=== PATIENT | female | born 1990 | race Two or more races ===

== ENCOUNTER 2025-01-11 08:03 | Inpatient (IN) | payer BC, SELFPAY ==
--- NOTE | 2025-01-11 | XR_ITS ---
MRI abdomen, without contrast. MRCP Date and time of exam: January 11, 2025, 1503 hrs. Indications: Abdominal pain radiating to back this morning, enlarged common bile duct and possible edema around the pancreas on abdomen sonogram today at 0905 hrs. Technique: Multiple axial and coronal images of the abdomen have been obtained with the Siemens 1.5T MRI scanner. Images obtained included T1 weighted transverse images, T2-weighted transverse images, T2-weighted transverse images fat-suppressed, T2 weighted haste fat suppressed transverse images, T1 weighted images, in and out of phase images, T2-weighted coronal images, breath hold, T2 weighted haze coronal images as well as T2 weighted coronal thick slab images, MRCP. Findings: No focal liver lesions or intrahepatic biliary tract dilatation Multiple gallstones, gallbladder wall is not thickened. Common hepatic duct common bile duct 4 to 5 mm no common bile duct or common hepatic duct stones. Pancreatic duct is not dilated. Prominent edema surrounding the pancreas. Spleen is not enlarged No hydronephrosis Impression: Cholelithiasis, negative for cholecystitis Negative for common hepatic or common bile duct stones Prominent pancreatitis, no pseudocyst
[2025-01-11 08:04] VITALS: BMI 36.6
[2025-01-11 08:09] VITALS: BP 130/85; PULSE 100; RESP 19; TEMP 36.7; O2SAT 100; BMI 32.7
--- NOTE | 2025-01-11 08:26 | PD.EDRME ---
Rapid Medical Screening Exam E Arrival date/time: 01/11/25 08:03 This is a 34-year-old female that comes into the emergency room with complaints of nausea urinary frequency urgency oliguria but denies dysuria. Patient states that she was seen at [facility] and was diagnosed with a UTI and a ruptured ovarian cyst. Patient was placed on Keflex and 2 days her last day of antibiotic. Patient states she has not been able to keep anything down she has a poor appetite. Patient denies vomiting but complains about nausea. Patient has a history of gastric sleeve surgery approximately 4 years ago. Patient patient reports she recently just had a menstrual cycle and does not think she is . Patient complains of generalized abdominal pain. I have greeted and performed a focused initial assessment of this patient. Initial appropriate labs ordered at this time. A comprehensive ED assessment and evaluation of the patient and analysis of all test and completion of medical decision making process will be conducted by additional ED provider. Chief Complaint: Urogenital-Female Time Seen by Provider: 01/11/25 08:09 Vital signs: Vital Signs Temperature 98.0 F 01/11/25 08:09 Pulse Rate 100 01/11/25 08:09 Respiratory Rate 19 01/11/25 08:09 Blood Pressure 130/85 H 01/11/25 08:09 Pulse Oximetry (%) 100 01/11/25 08:09 Oxygen Delivery Method Room Air 01/11/25 08:09
[2025-01-11] MEDS: ONDANSETRON ODT 4 MG TABRAP PO (08:33)
--- NOTE | 2025-01-11 09:08 | XR_ITS ---
Examination: Abdomen sonogram, Limited Date and time of exam: January 11, 2025, 0905 hrs. Indications: Upper back pain epigastric pain today Technique: Real-time metzger scale transabdominal sonographic images of the upper abdomen obtained. Findings: Gallstones, gallbladder sludge, normal gallbladder wall 0.2 cm Common bile duct 0.8 cm no definite stones Pancreatic head 3.7 cm possible edema Liver 15 cm Normal hepatopedal portal venous flow Patent IVC Impression: Cholelithiasis, negative for cholecystitis Consider MRCP follow-up to exclude stones in the dilated common bile duct and also to confirm pancreatitis
[2025-01-11 09:11] LABS: Collection Type, Urine Voided
[2025-01-11 09:16] LABS: Basophils # (Auto) 0.0 Thou/mm3 (0.0-0.2); Basophils % (Auto) 0 % (0-2.5); Eosinophils # (Auto) 0.0 Thou/mm3 (0.0-0.5); Eosinophils % (Auto) 0 % (0-10); Hematocrit 40.6 % (36.0-46.0); Hemoglobin 13.6 g/dL (12.0-16.0); Immature Granulocytes Auto 0.08 Thou/mm3 (0.00-0.00); Lymphocytes # (Auto) 0.8 Thou/mm3 (1.0-4.8); Lymphocytes % (Auto) 5 % (10-50); Mean Corpuscular HGB Conc 33.5 g/dl (31.0-37.0); Mean Corpuscular Hemoglobin 29.8 pg (25.0-35.0); Mean Corpuscular Volume 89 fL (80-100); Monocytes # (Auto) 0.3 Thou/mm3 (0.0-0.8); Monocytes % (Auto) 2 % (0-12); Neutrophils # (Auto) 14.0 Thou/mm3 (1.8-7.7); Neutrophils % (Auto) 92 % (37-80); Nucleated Red Blood Cell # 0.00 Thou/mm3 (0.00-0.00); Nucleated Red Blood Cell % 0 /100 WBC (0); Platelet Count 416 Thou/mm3 (140-440); RDW Standard Deviation 41.1 fL (36.4-46.3); Red Blood Count 4.57 Miln/mm3 (4.00-5.20); White Blood Count 15.2 Thou/mm3 (3.6-11.0)
--- NOTE | 2025-01-11 09:16 | XR_ITS ---
Examination: Transvaginal ultrasound of the pelvis, complete Technique: Transvaginal sonographic images pelvis performed using metzger scale imaging Exam date and time: January 11, 2025, 0919 hrs. Indications: Upper abdominal pain pelvic pain with nausea today, history ovarian cyst rupture one week ago Findings: Uterus 7.0 cm endometrial stripe 0.5 cm No mass or intrauterine gestation Right ovary 3.1 cm arterial flow small follicles, the largest 9 mm Left ovary 3.5 cm arterial flow, small follicles, the largest 7 mm Minimal fluid adjacent to the left ovary Mild fluid in the cul-de-sac Impression: No uterine mass or intrauterine gestation Small bilateral ovarian follicular cysts Mild free fluid in the left adnexal region, differential would include recent rupture of a left ovarian follicular cyst.
[2025-01-11 09:21] LABS: Bilirubin,Urine Negative (Negative); Blood,Urine Trace (Negative); Clarity,Urine Clear (Clear/Hazy); Color,Urine Yellow (Lt Yel-Yel); Culture Indicated,Urine Not Indicated; Glucose, Urine Negative (Negative); Ketones,Urine 4+ (Negative); Leukocyte Esterase,Urine Positive (Negative); Nitrite,Urine Negative (Negative); PH,Urine 6.0 (5.0-7.0); Protein,Urine 1+ (Neg - Trace); RBC,Urine 4 /hpf (0-3); Specific Gravity,Urine 1.030 (1.001-1.035); Squamous Epithelial Cell,Urine 3 /hpf (0-5); Urobilinogen,Urine 3.0 mg/dL (0.0-1.0); WBC,Urine 5 /hpf (0-5)
[2025-01-11 09:47] LABS: INR 1.1 (0.9-1.3); Prothrombin Time 11.3 Seconds (9.0-12.2)
[2025-01-11 09:48] LABS: HCG Qualitative,Urine Negative
[2025-01-11 10:16] LABS: Alanine Aminotransferase 184 U/L (10-49); Albumin, Serum 4.6 gm/dL (3.5-5.0); Albumin/Globulin Ratio 1.4 (1.2-2.2); Alkaline Phosphatase 180 U/L (46-116); Anion Gap 11 (7-16); Aspartate Amino Transferase 97 U/L (0-34); BUN/Creatinine Ratio 14 Ratio (12-20); Bilirubin,Total 1.3 mg/dL (0.3-1.2); Blood Urea Nitrogen 10 mg/dL (9-23); Calcium 9.8 mg/dL (8.3-10.6); Calcium (Corrected) 9.8 mg/dL (8.5-10.1); Carbon Dioxide 25.0 mMol/L (20.0-31.0); Chloride 106 mMol/L (98-107); Creatinine (Component) 0.7 mg/dL (0.6-1.3); Estimated Creatinine Clearance 140.9 mL/min (>60); Globulin 3.2 gm/dL (2.3-3.5); Glucose 124 mg/dL (74-106); Lipase 2451 U/L (12-53); Osmolality,Calculated 283 (275-295); Potassium 4.6 mMol/L (3.4-5.1); Sodium 142 mMol/L (136-145); Total Protein 7.8 gm/dL (5.7-8.2); eGFR > 60 See Note
--- NOTE | 2025-01-11 11:30 | PD.EDFMALE ---
ED Female Urogenital RME/HPI General Chief complaint: Urogenital-Female Stated complaint: GEN. ABD PAIN RADIATING TO BACK X0200 THIS AM Time Seen by Provider: 01/11/25 08:09 Arrival date/time: 01/11/25 08:03 Limitations: no limitations RME / HPI RME / HPI Narrative: DR. MATTIE QUILES ED EVALUATION: 34-year-old female with history of gastric sleeve surgery (4 years ago) presents to the Emergency Department with complaints of nausea, urinary frequency, urgency, and oliguria, but denies dysuria. She was evaluated at [facility] recently and diagnosed with an UTI and a ruptured ovarian cyst, for which she was started on Keflex. Today is day 2 of her antibiotic course. She reports poor appetite and inability to keep much down, though she denies vomiting. She also reports generalized abdominal pain. She recently completed a menstrual cycle and does not believe she is . Related Data Home Medications ?Medication ?Instructions ?Recorded ?Confirmed levothyroxine 75 mcg tablet 75 mcg PO DAILY 01/11/25 01/11/25 liothyronine 25 mcg tablet 25 mcg PO DAILY 01/11/25 01/11/25 Previous Rx's ?Medication ?Instructions ?Recorded naloxone 4 mg/actuation nasal 4 mg intranasal Q2M PRN opioid 01/13/25 spray (Narcan) overdose #2 ea Allergies Allergy/AdvReac Type Severity Reaction Status Date / Time No Known Allergies Allergy Unverified 01/11/25 08:27 Review of Systems Review of Systems Systems Reviewed: All systems reviewed, normal except as documented Past Medical History Past Medical History GASTROINTESTINAL: Positive Obesity ENDOCRINE: Positive Hyperthyroidism and Hypothyroidism Surgical History SURGICAL: Positive Abdominal Surgery (gastric sleeve) Social History SMOKING STATUS: Never smoker SUBSTANCE USE: does not use ALCOHOL: Never ED Exam General Limitations: Present no limitations General appearance: Present alert and in no apparent distress Head Head exam: Present atraumatic, normocephalic and normal inspection Eye Eye exam: Present normal appearance, PERRL and EOMI ENT ENT exam: Present normal exam, normal oropharynx and mucous membranes moist Neck Neck exam: Present normal inspection, full ROM and trachea midline Chest Chest inspection: Present normal inspection and symmetric chest wall rise Respiratory Respiratory exam: Present normal lung sounds bilaterally Cardiovascular Cardiovascular exam: Present regular rate, normal rhythm and normal heart sounds Abdominal Exam Abdominal exam: Present soft and normal bowel sounds Extremities Exam Extremities exam: Present normal inspection and full ROM Back Exam Back exam: Present normal inspection and full ROM Neurological Exam Neurological exam: Present alert, oriented X3 and CN II-XII intact Psychiatric Psychiatric exam: Present normal affect and normal mood Skin Skin exam: Present warm, dry, intact and normal color Course Quality Measures none Orders Category Date Time Status MRI Screening NOW Care 01/11/25 11:40 Completed MR MRCP Stat Exams 01/11/25 Completed US abdomen limited Stat Exams 01/11/25 09:08 Completed US transvaginal Stat Exams 01/11/25 09:16 Completed CBC Stat Lab 01/11/25 08:48 Completed Comprehensive Metabolic Panel Stat Lab 01/11/25 08:48 Completed HCG Qualitative,Urine Stat Lab 01/11/25 08:57 Completed Lipase Stat Lab 01/11/25 08:48 Completed PT [Prothrombin Time with INR] Stat Lab 01/11/25 08:48 Completed Type and Screen Stat Lab 01/11/25 09:28 Completed Urinalysis, C/S if Indicated Stat Lab 01/11/25 08:57 Completed Morphine* Inj Med 01/11/25 14:54 Discontinued 2 mg IVP STAT STA Morphine* Inj Med 01/11/25 20:33 Discontinued 2 mg IVP X1 ONE Ondansetron Odt [Zofran Odt] Med 01/11/25 08:25 Discontinued 4 mg PO X1 ONE Ringers Lactated 1000 ml [Lactated Ringers] 1,000 ml Med 01/11/25 11:40 Discontinued IV 999 mls/hr Vital Signs Vital signs: Vital Signs Temperature 98.0 F 01/11/25 08:09 Pulse Rate 100 01/11/25 08:09 Respiratory Rate 19 01/11/25 08:09 Blood Pressure 130/85 H 01/11/25 08:09 Pulse Oximetry (%) 100 01/11/25 08:09 Oxygen Delivery Method Room Air 01/11/25 08:09 Urogenital - Female MDM Narrative MDM Narrative:: Labs with evidence of leukocytosis 15.2, left shift of 92%. No acute electrolyte abnormality. Patient does have a transaminitis, do not have a recent prior for comparison. T. bili 1.3, AST 97, ALT 184 alk phos 180. Patient has a lipase of 2451. Urinalysis with 3 squames 5 WBCs 4 RBCs positive leuk esterase no bacteria nitrite negative. Will send the urine for culture we will treat given patient is symptomatic. Right upper quadrant ultrasound with evidence of cholelithiasis no evidence of cholecystitis. CBD is not dilated. Pelvic ultrasound with bilateral ovarian follicular cysts, mild free fluid in the left adnexal region. MRCP without evidence of choledocholithiasis, does have cholelithiasis and npancreatitis. No abnormalities appreciated. Discussed case with team C. Dr. Mi. Agrees patient needs to be admitted. I, Luly Davis, am scribing for and in the presence of Dr. Pittman. Patient data External records reviewed:: [facility] previous records Clinical information provided by:: patient Social determinants that could affect healthcare access:: none Patient has the following chronic illnesses:: History of gastric sleeve surgery (4 years ago). She was evaluated at [facility] recently and diagnosed with an UTI and a ruptured ovarian cyst, for which she was started on Keflex. How is presenting disease/condition affected by chronic disease/condition?: exacerbated by Evaluation data The following diagnostics were reviewed and interpreted by me:: lab results and radiology exam(s) Lab and/or radiology exams considered but not ordered:: none Interpretation Summary: See MDM narrative above. RADIOLOGY Procedure(s): US abdomen limited Accession Number(s): [id number] cc: Frankie Jurado MD; NO PRIMARY/FAMILY,PHYSICIAN; Karol Moser NP~ Examination: Abdomen sonogram, Limited Date and time of exam: January 11, 2025, 0905 hrs. Indications: Upper back pain epigastric pain today Technique: Real-time metzger scale transabdominal sonographic images of the upper abdomen obtained. Findings: Gallstones, gallbladder sludge, normal gallbladder wall 0.2 cm Common bile duct 0.8 cm no definite stones Pancreatic head 3.7 cm possible edema Liver 15 cm Normal hepatopedal portal venous flow Patent IVC Impression: Cholelithiasis, negative for cholecystitis Consider MRCP follow-up to exclude stones in the dilated common bile duct and also to confirm pancreatitis Dictated By: Frankie Jurado MD Procedure(s): US transvaginal Accession Number(s): [id number] cc: Frankie Jurado MD; NO PRIMARY/FAMILY,PHYSICIAN; Loulou Pittman MD~ Examination: Transvaginal ultrasound of the pelvis, complete Technique: Transvaginal sonographic images pelvis performed using metgzer scale imaging Exam date and time: January 11, 2025, 0919 hrs. Indications: Upper abdominal pain pelvic pain with nausea today, history ovarian cyst rupture one week ago Findings: Uterus 7.0 cm endometrial stripe 0.5 cm No mass or intrauterine gestation Right ovary 3.1 cm arterial flow small follicles, the largest 9 mm Left ovary 3.5 cm arterial flow, small follicles, the largest 7 mm Minimal fluid adjacent to the left ovary Mild fluid in the cul-de-sac Impression: No uterine mass or intrauterine gestation Small bilateral ovarian follicular cysts Mild free fluid in the left adnexal region, differential would include recent rupture of a left ovarian follicular cyst. Dictated By: Frankie Jurado MD Procedure(s): MR MRCP Accession Number(s): [id number] cc: Frankie Jurado MD; NO PRIMARY/FAMILY,PHYSICIAN; Loulou Pittman MD~ MRI abdomen, without contrast. MRCP Date and time of exam: January 11, 2025, 1503 hrs. Indications: Abdominal pain radiating to back this morning, enlarged common bile duct and possible edema around the pancreas on abdomen sonogram today at 0905 hrs. Technique: Multiple axial and coronal images of the abdomen have been obtained with the Siemens 1.5T MRI scanner. Images obtained included T1 weighted transverse images, T2-weighted transverse images, T2-weighted transverse images fat-suppressed, T2 weighted haste fat suppressed transverse images, T1 weighted images, in and out of phase images, T2-weighted coronal images, breath hold, T2 weighted haze coronal images as well as T2 weighted coronal thick slab images, MRCP. Findings: No focal liver lesions or intrahepatic biliary tract dilatation Multiple gallstones, gallbladder wall is not thickened. Common hepatic duct common bile duct 4 to 5 mm no common bile duct or common hepatic duct stones. Pancreatic duct is not dilated. Prominent edema surrounding the pancreas. Spleen is not enlarged No hydronephrosis Impression: Cholelithiasis, negative for cholecystitis Negative for common hepatic or common bile duct stones Prominent pancreatitis, no pseudocyst Dictated By: Frankie Jurado MD Medications / Prescriptions Medications or Prescriptions considered but not ordered:: none Medication administrations:: Medication Administration History Discontinued Medications Acetaminophen (Acetaminophen 325 Mg Tablet) 650 mg PO Q6H PRN PRN Reason: Fever >100.4 Stop: 02/10/25 21:08 Acetaminophen (Acetaminophen 325 Mg Tablet) 650 mg PO Q6H PRN PRN Reason: PAIN SCALE 1-3 (mild Stop: 02/10/25 21:08 Heparin Sodium (Porcine) (Heparin Sod Inj 5000 Unit/Ml Vial) 5,000 unit SC Q8HR MAIRA Stop: 01/25/25 21:59 Last Admin: 01/13/25 05:33 Dose: 5,000 unit Documented By: ARACELI Co-signed By: LETITIA Admin: 01/12/25 21:03 Dose: 5,000 unit Documented By: ARACELI Co-signed By: YESSI Admin: 01/12/25 14:19 Dose: 5,000 unit Documented By: BRYAN Co-signed By: RY Admin: 01/12/25 05:38 Dose: 5,000 unit Documented By: ALLEY Co-signed By: ARACELI Admin: 01/11/25 22:07 Dose: 5,000 unit Documented By: LAVON Co-signed By: ANNA Hydromorphone HCl (Hydromorphone Inj 2 Mg/Ml Vial) 1 mg IVP Q4HR PRN PRN Reason: Pain 4-10 Stop: 01/17/25 08:08 Last Admin: 01/12/25 19:21 Dose: 1 mg Documented By: Admin: 01/12/25 11:23 Dose: 1 mg Documented By: BRYAN Lactated Ringer's (Lactated Ringers) 1,000 mls @ 999 mls/hr IV .Q1H1M ONE Stop: 01/11/25 12:40 Last Infusion: 01/11/25 13:08 Dose: Infused Documented By: Admin: 01/11/25 12:07 Dose: 999 mls/hr Documented By: KAITLYNN Lactated Ringer's (Lactated Ringers) 1,000 mls @ 200 mls/hr IV .Q5H MAIRA Stop: 02/10/25 21:14 Last Admin: 01/13/25 06:01 Dose: 200 mls/hr Documented By: Infusion: 01/13/25 06:01 Dose: Infused Documented By: Admin: 01/13/25 01:26 Dose: 200 mls/hr Documented By: Infusion: 01/13/25 01:26 Dose: Infused Documented By: Admin: 01/12/25 20:52 Dose: 200 mls/hr Documented By: Infusion: 01/12/25 20:32 Dose: Infused Documented By: Admin: 01/12/25 15:32 Dose: 200 mls/hr Documented By: Infusion: 01/12/25 15:32 Dose: Infused Documented By: Admin: 01/12/25 10:41 Dose: 200 mls/hr Documented By: Infusion: 01/12/25 10:37 Dose: Infused Documented By: Admin: 01/12/25 05:37 Dose: 200 mls/hr Documented By: Infusion: 01/12/25 05:37 Dose: Infused Documented By: Admin: 01/12/25 02:46 Dose: 200 mls/hr Documented By: Infusion: 01/12/25 02:28 Dose: Infused Documented By: Admin: 01/11/25 21:28 Dose: 200 mls/hr Documented By: LAVON Potassium Chloride (Kcl Ivpb) 10 meq in 100 mls @ 100 mls/hr IV Q1H MAIRA Stop: 01/13/25 12:32 Last Admin: 01/13/25 09:51 Dose: Not Given Documented By: JAY Non-Admin Reason: Discontinued Admin: 01/13/25 09:49 Dose: Not Given Documented By: JAY Non-Admin Reason: Discontinued Morphine Sulfate (Morphine Sulf Inj 4 Mg/Ml Vial) 2 mg IVP STAT STA Stop: 01/11/25 14:55 Last Admin: 01/11/25 15:02 Dose: 2 mg Documented By: INES Morphine Sulfate (Morphine Sulf Inj 4 Mg/Ml Vial) 2 mg IVP X1 ONE Stop: 01/11/25 20:34 Last Admin: 01/11/25 20:38 Dose: 2 mg Documented By: LAVON Morphine Sulfate (Morphine Sulf Inj 4 Mg/Ml Vial) 2 mg IVP Q4HR PRN PRN Reason: PAIN SCALE 4-10(Mod-Sev Last Admin: 01/12/25 07:05 Dose: 2 mg Documented By: Admin: 01/12/25 02:45 Dose: 2 mg Documented By: YESSI Ondansetron HCl (Ondansetron Odt 4 Mg Tabrap) 4 mg PO X1 ONE; Protocol Stop: 01/11/25 08:26 Last Admin: 01/11/25 08:33 Dose: 4 mg Documented By: GRACIE Ondansetron HCl (Ondansetron Inj 2 Mg/Ml Inj 2 Ml) 4 mg IVP Q6H PRN; Protocol PRN Reason: NAUSEA OR VOMITING Stop: 02/10/25 21:08 Pantoprazole Sodium (Pantoprazole 40 Mg Tablet) 40 mg PO QDAY MAIRA Stop: 02/11/25 08:59 Last Admin: 01/13/25 08:05 Dose: 40 mg Documented By: Admin: 01/12/25 08:11 Dose: 40 mg Documented By: BRYAN Potassium Chloride (Potassium Chloride 20 Meq Tabcr) 40 meq PO X1 ONE Stop: 01/13/25 09:47 Last Admin: 01/13/25 09:54 Dose: 40 meq Documented By: JAY Sennosides (Senna Tablet) 1 tab PO QDAY PRN; Protocol PRN Reason: constipation Stop: 02/10/25 21:08 see above Consultations Consultation(s) initiated? (list below): Yes Consultation #1 (Physician, Specialty, Details): See MDM narrative above. Diagnosis Urogenital Female Differential Diagnosis: other (Complicated UTI/pyelonephritis, ruptured ovarian cyst with persistent pain, and gastritis/peptic ulcer disease (post-gastric sleeve).) Most likely diagnosis given after review of the tests above:: See below under clinical impression Admission Indicated Admission indicated?: indicated Admission Request Was there a request for admission?: Yes Admission Attestation Admission request attestation: Discussed case with [] from Hospitalist service regarding admission. Discussed patients ED course, exam findings, labs, and radiology results. The Hospitalist [agrees,declines] to accept the patient for admission. Disposition Plan Disposition Plan: Discharge Discharge Attestation Discharge Attestation: The patient and all family members were given an opportunity to ask questions and understood the discharge instructions. Discharge instructions specifically effects, indications for sooner follow up or return to the emergency department, and the expected course of current diagnosis. Patient condition: Stable Discharge Plan Plan Patient Disposition: Admit Acute Care w/in Hospital Patient condition on transfer: Stable Problem List Clinical Impression: Pancreatitis Patient/Caregiver Discharge Instructions Discharge Activity: activity as tolerated
[2025-01-11 11:46] VITALS: BP 127/87; PULSE 94; RESP 17; TEMP 36.8; O2SAT 98
[2025-01-11] MEDS: RINGERS LACTATED 1000 ML 1,000 ML 999 ML IV (12:07)
[2025-01-11] MEDS: MORPHINE SULF INJ 4 MG/ML VIAL 2 MG IVP ×2 (15:02→20:38)
[2025-01-11 16:16] VITALS: BP 153/89; PULSE 97; RESP 18; TEMP 36.9; O2SAT 100
[2025-01-11 18:40] VITALS: BP 136/92; PULSE 98; RESP 18; TEMP 36.8; O2SAT 98
[2025-01-11 20:02] VITALS: BP 128/86; PULSE 100; RESP 18; TEMP 36.4; O2SAT 99
--- NOTE | 2025-01-11 21:14 | PD.RESHP ---
Documentation for date of: 01/11/25 HPI History of Present Illness Chief complaint: Severe upper abdominal pain. History of present illness: This is a 34 year old female with Past Medical History of Gastric Sleeve Surgery, hypothyroidism presents with severe upper abdominal pain 9/10 on a pain scale ,constant, radiating to the back Since 1 day.She has been experiencing Nausea since morning but denies any episodes of vomiting. She has a history of 40 pound weight loss in last 4 months and is currently on zepbound. Had a recent ED admission last week at [facility] for lower abdominal pain- came out to be ovarian cyst rupture and got treated for UTI with Cephalexin as well. No prior history of pancreatitis in the past. Patient denies fever, chills, shortness of breath, chest pain, changes in urinary or bowel habits. Patient will be admitted for management of pancreatitis. ED Encounter: When she presented to the ED her vitals are BP:130/85 mm Hg,[place]:100bpm , Resp:19 ,Temp:98.0 F ,Spo2:100 on RA Pertinent Labs are Hb:13.6 WBC: 15.2 ,Neutro:92 TB:1.3 , AST:97, ALT:184,ALP:180 Lipase:2451. UA: Ketones:4+,RBC:4, Protein:1+ MRCP shows Cholelithiasis and no stones in the common Bile Duct. She has been given [address] Ringer lactate. CT scan that showed Pancreatitis Past Medical History: Hypothyrodism - takes Levothyroxine and Liothyronine.Tirzpatide for weight loss. Past Surgical History: Gastric Sleeve Surgery. Social History: Denies alcohol usage and smoking. Family History: H/o Gallstones in her sister. ROS: As stated above. Review of Systems Review of Systems Systems Reviewed: All systems reviewed, normal except as documented Exam Vital Signs Temp Pulse Resp BP Pulse Ox O2 Del Method 97.6 F 100 18 128/86 H 99 Room Air 01/11/25 20:02 01/11/25 20:02 01/11/25 20:02 01/11/25 20:02 01/11/25 20:02 01/11/25 20:02 Narrative Exam Physical Exam GENERAL: NAD, AAOx3 HEENT: Moist mucosa. Eyes open, symmetrical, & clear CARDIO: Heart RRR, no obvious murmurs PULM: No noted coughing/dyspnea CTA B/L, no R/W/R GI: Abdomen soft, nondistended, pain on palpation in the epigastric and RUQ region. BSx4 SKIN/MSK/EXT: No wounds/rashes/edema/amputations, pain on palpation on lower Back. Pedal pulses present B/L NEURO: AAOx3, no focal neuro deficits, able to move all 4 extremities Results: Labs 01/11/25 08:48 01/11/25 08:48 Labs: Short CBC 01/11/25 Range/Units 08:48 WBC 15.2 H (3.6-11.0) Thou/mm3 Hgb 13.6 (12.0-16.0) g/dL Hct 40.6 (36.0-46.0) % Plt Count 416 (140-440) Thou/mm3 BMP 01/11/25 08:48 Sodium 142 Potassium 4.6 Chloride 106 Carbon Dioxide 25.0 BUN 10 Creatinine 0.7 Glucose 124 H Calcium 9.8 Liver Function 01/11/25 Range/Units 08:48 Total Bilirubin 1.3 H (0.3-1.2) mg/dL AST 97 H (0-34) U/L ALT 184 H (10-49) U/L Alkaline Phosphatase 180 H (46-116) U/L Albumin 4.6 (3.5-5.0) gm/dL Urine 01/11/25 Range/Units 08:57 Urine Color Yellow (Lt Yel-Yel) Urine Clarity Clear (Clear/Hazy) Urine pH 6.0 (5.0-7.0) Ur Specific [place] 1.030 (1.001-1.035) Urine Protein 1+ A (Neg - Trace) Urine Glucose (UA) Negative (Negative) Quality Measures Quality Measures none Medications Home Medications and Allergies Home Medications ?Medication ?Instructions ?Recorded ?Confirmed ?Type levothyroxine 75 mcg tablet 75 mcg PO DAILY 01/11/25 01/11/25 History liothyronine 25 mcg tablet 25 mcg PO DAILY 01/11/25 01/11/25 History tirzepatide (weight loss) 10 10 mg subcut QWEEK 01/11/25 01/11/25 History mg/0.5 mL subcutaneous pen injector (Zepbound) Allergies Allergy/AdvReac Type Severity Reaction Status Date / Time No Known Allergies Allergy Unverified 01/11/25 08:27 Visit Medications Acetaminophen (Acetaminophen 325 Mg Tablet) 650 mg PO Q6H PRN PRN Reason: Fever >100.4 Stop: 02/10/25 21:08 Acetaminophen (Acetaminophen 325 Mg Tablet) 650 mg PO Q6H PRN PRN Reason: PAIN SCALE 1-3 (mild Stop: 02/10/25 21:08 Heparin Sodium (Porcine) (Heparin Sod Inj 5000 Unit/Ml Vial) 5,000 unit SC Q8HR MAIRA Stop: 01/25/25 21:59 Lactated Ringer's (Lactated Ringers) 1,000 mls @ 200 mls/hr IV .Q5H MAIRA Stop: 02/10/25 21:14 Ondansetron HCl (Ondansetron Inj 2 Mg/Ml Inj 2 Ml) 4 mg IVP Q6H PRN; Protocol PRN Reason: NAUSEA OR VOMITING Stop: 02/10/25 21:08 Pantoprazole Sodium (Pantoprazole 40 Mg Tablet) 40 mg PO QDAY MAIRA Stop: 02/11/25 08:59 Sennosides (Senna Tablet) 1 tab PO QDAY PRN; Protocol PRN Reason: constipation Stop: 02/10/25 21:08 Discontinued Medications Lactated Ringer's (Lactated Ringers) 1,000 mls @ 999 mls/hr IV .Q1H1M ONE Stop: 01/11/25 12:40 Last Infusion: 01/11/25 13:08 Dose: Infused Morphine Sulfate (Morphine Sulf Inj 4 Mg/Ml Vial) 2 mg IVP STAT STA Stop: 01/11/25 14:55 Last Admin: 01/11/25 15:02 Dose: 2 mg Morphine Sulfate (Morphine Sulf Inj 4 Mg/Ml Vial) 2 mg IVP X1 ONE Stop: 01/11/25 20:34 Last Admin: 01/11/25 20:38 Dose: 2 mg Ondansetron HCl (Ondansetron Odt 4 Mg Tabrap) 4 mg PO X1 ONE; Protocol Stop: 01/11/25 08:26 Last Admin: 01/11/25 08:33 Dose: 4 mg Assessment & Plan Plan Patient with PMX of hypothyroidism, Gastric sleeve surgery presented with severe upper abdominal pain radiating to the back. Admitted for Pancreatitis. #Acute Pancreatitis #Cholelithiasis presents with severe upper abdominal pain 9/10 on a pain scale ,constant, radiating to the back for 1 day MRCP showed cholilithiasis without cholecystitis or CBD obstruction with prominent pancreatitis Lipase 2451 Patient has no history of alcohol abuse, however patient has had increased weight loss and is currently on zepbound which could possibly cause pancreatitis. - IV fluids Ringer lactate- 200ml/hr - CLD once tolerating and advance as tolerated - IV Morphine for pain control - follow up for Triglyceride Levels - Follow up with PCP for Elective Cholecystecomy as an outpatient #Hypothyrodism - continue levothyroxine as taken at home #Hx of ruptured ovarian cyst Previously seen at [facility] and discharged last week Case discussed with my senior Dr. Johnson PGY-[address] Marni Marin MD PGY-1 Disposition: medtele Fluids: LR Feeding: CLD Thrombo prophylaxis: Heparin Gastric Ulcer prophylaxis: Pantoprazole CODE STATUS: Full code Attending Provider Attestation/Addendum After examination of the patient and review of the clinical data I feel that this patient needs admission to the hospital for further treatment/evaluation. Plan of care discussed with patient and is in agreement. I Lisa Grider MD, attest that I was physically present for gómez portions of evaluation, and examined patient, labs and imagings and plan of care were discussed with IM residents team, and I agree with the findings and plans documented above.
[2025-01-11] MEDS: RINGERS LACTATED 1000 ML 1,000 ML 200 ML IV (21:28)
[2025-01-11] MEDS: HEPARIN SOD INJ 5000 UNIT/ML VIAL SC (22:07)
[2025-01-11 22:20] VITALS: BP 138/86; PULSE 92; RESP 18; TEMP 37.3; O2SAT 99
[2025-01-11 23:02] VITALS: BMI 35.2
[2025-01-12] VITALS (8 sets, daily range): BP systolic 102–127; BP diastolic 58–81; PULSE 92–107; RESP 16–19; TEMP 36.3–37.2; O2SAT 97–99
[2025-01-12] MEDS: MORPHINE SULF INJ 4 MG/ML VIAL 2 MG IVP ×2 (02:45→07:05)
[2025-01-12] MEDS: RINGERS LACTATED 1000 ML 1,000 ML 200 ML IV ×5 (02:46→20:52)
[2025-01-12] MEDS: HEPARIN SOD INJ 5000 UNIT/ML VIAL SC ×3 (05:38→21:03)
[2025-01-12 06:40] LABS: Alanine Aminotransferase 101 U/L (10-49); Albumin, Serum 3.7 gm/dL (3.5-5.0); Albumin/Globulin Ratio 1.6 (1.2-2.2); Alkaline Phosphatase 121 U/L (46-116); Anion Gap 11 (7-16); Aspartate Amino Transferase 32 U/L (0-34); BUN/Creatinine Ratio 10 Ratio (12-20); Bilirubin,Total 0.9 mg/dL (0.3-1.2); Blood Urea Nitrogen 6 mg/dL (9-23); Calcium 8.8 mg/dL (8.3-10.6); Calcium (Corrected) 9.0 mg/dL (8.5-10.1); Carbon Dioxide 25.0 mMol/L (20.0-31.0); Chloride 107 mMol/L (98-107); Creatinine (Component) 0.6 mg/dL (0.6-1.3); Estimated Creatinine Clearance 154.2 mL/min (>60); Globulin 2.3 gm/dL (2.3-3.5); Glucose 92 mg/dL (74-106); Magnesium 1.8 mg/dL (1.6-2.6); Osmolality,Calculated 282 (275-295); Phosphorous 3.8 mg/dL (2.4-5.1); Potassium 3.9 mMol/L (3.4-5.1); Sodium 143 mMol/L (136-145); Total Protein 6.0 gm/dL (5.7-8.2); Triglycerides 66 mg/dL (30-150); eGFR > 60 See Note
[2025-01-12 07:07] LABS: Basophils # (Auto) 0.0 Thou/mm3 (0.0-0.2); Basophils % (Auto) 0 % (0-2.5); Eosinophils # (Auto) 0.1 Thou/mm3 (0.0-0.5); Eosinophils % (Auto) 1 % (0-10); Hematocrit 35.2 % (36.0-46.0); Hemoglobin 11.7 g/dL (12.0-16.0); Immature Granulocytes Auto 0.02 Thou/mm3 (0.00-0.00); Lymphocytes # (Auto) 1.6 Thou/mm3 (1.0-4.8); Lymphocytes % (Auto) 15 % (10-50); Mean Corpuscular HGB Conc 33.2 g/dl (31.0-37.0); Mean Corpuscular Hemoglobin 29.5 pg (25.0-35.0); Mean Corpuscular Volume 89 fL (80-100); Monocytes # (Auto) 0.6 Thou/mm3 (0.0-0.8); Monocytes % (Auto) 6 % (0-12); Neutrophils # (Auto) 8.4 Thou/mm3 (1.8-7.7); Neutrophils % (Auto) 78 % (37-80); Nucleated Red Blood Cell # 0.00 Thou/mm3 (0.00-0.00); Nucleated Red Blood Cell % 0 /100 WBC (0); Platelet Count 320 Thou/mm3 (140-440); RDW Standard Deviation 42.0 fL (36.4-46.3); Red Blood Count 3.96 Miln/mm3 (4.00-5.20); White Blood Count 10.8 Thou/mm3 (3.6-11.0)
[2025-01-12] MEDS: PANTOPRAZOLE 40 MG TABLET PO (08:11)
--- NOTE | 2025-01-12 10:00 | ESPR_ITS ---
<Statement entered by Elbert Vail MD - 01/19/25 12:10> I reviewed above note and agree with findings and plans. I have also personally examined the patient with medicine team and went over assessment and plan with medical team including event marketing intern and resident physician. <Statement entered by Daniel Graham MD - 01/12/25 14:51> I saw and examined patient personally and supervised PGY 1 resident, Dr. Reynoso with formulating a management plan. I agree with the documentation with the exceptions as listed below. Patient is a 34-year-old female with past medical history significant for gastric sleeve surgery 5 years ago, hypothyroidism and obesity on tirzepatide who presented with severe abdominal pain and nausea. Patient was admitted for pancreatitis Problem list: 1. Acute pancreatitis secondary to tirzepatide with elevated lipase of 2451 2. Cholelithiasis 3. Hypothyroidism 4. Obesity class II Patient presented with severe epigastric abdominal pain and nausea but denied any episodes of vomiting. On presentation her lipase was 2451, T. bili 1.3, AST 97, ALT 181 and ALP 180. Transaminitis has now down trended and T. bili improved to 0.9 from 1.3. Patient also denies any alcohol use history. Currently pending lipid panel. Most likely etiology of her pancreatitis is from tirzepatide. It is also possible that patient may have passed a gallstone leading to gallstone pancreatitis, however MRCP was negative for any stones in CBD. Will refer patient for general surgery consultation as outpatient with regards to her cholelithiasis. This morning patient is tolerating liquid diet and her pain is adequately controlled with hydromorphone 1 mg IV every 4 hourly as needed. Once patient tolerates solids and adequate pain control, anticipate discharge within next 24 to 48 hours. Plan of care discussed with Attending Dr. Genna Graham MD PGY 2 Disclaimer: This note was dictated by speech recognition. Minor errors in plater hot dip may be present due to voice recognition software. Documentation for date of: 01/12/25 Subjective Subjective Interval history: Patient examined bedside, labs reviewed. Reports feeling much better. She has not vomited and her nausea is gone. She confirms narrative of gastric sleeve surgery 5 years ago, hypothyroid diagnosis in April, and starting tirzepatide 10 months ago with an increase in her dose to 10mg 1 month ago, which is when her symptoms began. She does not have a heavy alcohol drinking history. Exam Vital Signs Temp Pulse Resp BP Pulse Ox O2 Del Method 98.8 F 99 16 112/58 L 97 Room Air 01/12/25 07:56 01/12/25 08:00 01/12/25 07:56 01/12/25 07:56 01/12/25 07:56 01/12/25 07:56 Narrative Exam GENERAL: NAD, AAOx3 HEENT: Moist mucosa. Eyes open, symmetrical, & clear CARDIO: Heart regular rhythm rate is tachy, no obvious murmurs PULM: No noted coughing/dyspnea CTA B/L, no R/W/R GI: Abdomen soft, nondistended, pain on palpation in the epigastrium BSx4 SKIN/MSK/EXT: No wounds/rashes/edema/amputations, pain on palpation on lower Back. Pedal pulses present B/L NEURO: AAOx3, no focal neuro deficits, able to move all 4 extremities Objective Labs 01/12/25 06:50 01/12/25 05:32 Labs: Laboratory Results - last 24 hr 01/11/25 01/11/25 01/12/25 08:48 09:28 05:32 WBC RBC Hgb Hct MCV MCH MCHC RDW Std Deviation Plt Count Neut % (Auto) Lymph % (Auto) [place] % (Auto) Eos % (Auto) Baso % (Auto) Neut # (Auto) Lymph # (Auto) [place] # (Auto) Eos # (Auto) Baso # (Auto) Immature Gran # (Auto) Absolute Nucleated RBC Immature Gran % Nucleated RBC % Sodium 142 143 Potassium 4.6 3.9 D Chloride 106 107 Carbon Dioxide 25.0 25.0 Anion Gap 11 11 BUN 10 6 L Creatinine 0.7 0.6 Estim Creat Clear Calc 140.9 154.2 eGFR > 60 > 60 BUN/Creatinine Ratio 14 10 L Glucose 124 H 92 Calculated Osmolality 283 282 Calcium 9.8 8.8 Corrected Calcium 9.8 9.0 Phosphorus 3.8 Magnesium 1.8 Total Bilirubin 1.3 H 0.9 AST 97 H 32 ALT 184 H 101 H Alkaline Phosphatase 180 H 121 H D Total Protein 7.8 6.0 Albumin 4.6 3.7 D Globulin 3.2 2.3 Albumin/Globulin Ratio 1.4 1.6 Triglycerides 66 Lipase 2451 H* Blood Type O Negative Antibody Screen NEGATIVE Blood Bank Wristband ID Yes 01/12/25 06:50 WBC 10.8 RBC 3.96 L Hgb 11.7 L Hct 35.2 L MCV 89 MCH 29.5 MCHC 33.2 RDW Std Deviation 42.0 Plt Count 320 D Neut % (Auto) 78 Lymph % (Auto) 15 [place] % (Auto) 6 Eos % (Auto) 1 Baso % (Auto) 0 Neut # (Auto) 8.4 H Lymph # (Auto) 1.6 [place] # (Auto) 0.6 Eos # (Auto) 0.1 Baso # (Auto) 0.0 Immature Gran # (Auto) 0.02 H Absolute Nucleated RBC 0.00 Immature Gran % 0 Nucleated RBC % 0 Sodium Potassium Chloride Carbon Dioxide Anion Gap BUN Creatinine Estim Creat Clear Calc eGFR BUN/Creatinine Ratio Glucose Calculated Osmolality Calcium Corrected Calcium Phosphorus Magnesium Total Bilirubin AST ALT Alkaline Phosphatase Total Protein Albumin Globulin Albumin/Globulin Ratio Triglycerides Lipase Blood Type Antibody Screen Blood Bank Wristband ID Quality Measures Quality Measures none Assessment & Plan Assessment Current Active Medications: Generic Name Dose Route Start Last Admin Trade Name Freq PRN Reason Stop Dose Admin Acetaminophen 650 mg 01/11/25 21:09 Acetaminophen 325 Mg Tablet PO 02/10/25 21:08 Q6H PRN Fever >100.4 Acetaminophen 650 mg 01/11/25 21:09 Acetaminophen 325 Mg Tablet PO 02/10/25 21:08 Q6H PRN PAIN SCALE 1-3 (mild Heparin Sodium (Porcine) 5,000 unit 01/11/25 22:00 01/12/25 05:38 Heparin Sod Inj 5000 Unit/Ml Vial SC 01/25/25 21:59 5,000 unit Q8HR MAIRA Administration Hydromorphone HCl 1 mg 01/12/25 08:09 Hydromorphone Inj 2 Mg/Ml Vial IVP 01/17/25 08:08 Q4HR PRN Pain 4-10 Lactated Ringer's 1,000 mls @ 200 mls/hr 01/11/25 21:15 01/12/25 05:37 Lactated Ringers IV 02/10/25 21:14 200 mls/hr .Q5H MAIRA Administration Ondansetron HCl 4 mg 01/11/25 21:09 Ondansetron Inj 2 Mg/Ml Inj 2 Ml IVP 02/10/25 21:08 Q6H PRN NAUSEA OR VOMITING Protocol Pantoprazole Sodium 40 mg 01/12/25 09:00 01/12/25 08:11 Pantoprazole 40 Mg Tablet PO 02/11/25 08:59 40 mg QDAY MAIRA Administration Sennosides 1 tab 01/11/25 21:09 Senna Tablet PO 02/10/25 21:08 QDAY PRN constipation Protocol Plan Patient with PMX of hypothyroidism, Gastric sleeve surgery presented with severe upper abdominal pain radiating to the back. Admitted for acute pancreatitis. #Acute Pancreatitis most likely 2/2 zepbound #Cholelithiasis #Hyperbilirubinemia - resolved #Transaminitis - resolving Presents with severe upper abdominal pain 9/10 on a pain scale, constant, radiating to the back for 1 day, Patient has no history of alcohol abuse, however patient has had increased weight loss and is currently on zepbound which is the most probable cause pancreatitis i/s/o minimal alcohol use, no gallstones blocking the ducts on imaging, no history of trauma and normal triglycerides. Admission labs were significant for Lipase 2451, T. bili 1.3, AST:97, ALT: 184, ALP 180. MRCP showed cholilithiasis without cholecystitis or CBD obstruction with prominent pancreatitis. S/p MRCP T. bili 0.9 AST 32 ALT 101 ALP 121 potentially indicating passage of an obstructing stone. Patient also has improved nausea and ability to tolerate liquid diet. Plan: - IV fluids Ringer lactate- 200ml/hr - CLD once tolerating and advance as tolerated - IV Morphine for pain control - DC'd - IV Dilaudid for pain control - follow up for Triglyceride Levels: 66 - Follow up with PCP for Elective Cholecystecomy as an outpatient #Dilutional anemia Hemoglobin was normal on admission but had a decrease in numerous CBC values following fluid administration therefore most likely dilutional anemia. Hbg 11.7 (13.6) Plan: -CTM CBC #Leukocytosis - resolved On admission WBC: 15.2 today 10.8. Most likely reactive due to stress from acute pancreatitis. Plan: -CTM WBC on CBC #Hypothyrodism - continue levothyroxine as taken at home #Hx of ruptured ovarian cyst Previously seen at [facility] and discharged last week Case discussed with my senior Dr. Graham PGY-[address] Genna Reynoso MD PGY-1 Disposition: medtele Fluids: LR Feeding: CLD Thrombo prophylaxis: Heparin Gastric Ulcer prophylaxis: Pantoprazole CODE STATUS: Full code
[2025-01-12] MEDS: HYDROmorphone INJ 2 MG/ML VIAL 1 MG IVP ×2 (11:23→19:21)
--- NOTE | 2025-01-12 12:01 | PC.SS ---
tea plantation worker (SW) met with the patient at bedside to complete the initial assessment and discuss a discharge plan. Per chart review, the patient was admitted with c/o severe upper abdominal pain. SW introduced self, role, and the reason for the consult. The patient agreed to engage in the assessment. Patient is alert and oriented to person, place, time, and situation. The patient is Halle Alvarez, 34 y/o Japanese-speaking female residing with her and children at [address] [place] [address]. Patient designated her , Jaren Almas, , as her surrogate medical decision maker. Patient reports her baseline is independent with no DME and can attend to her ADLs. Patient's PCP is Dr. Toby Graham. The Patient's discharge plan is home once medically clear, and her will provide transportation. Surrogate medical decision maker: , Jaren Almas, Discharge plan: Home
[2025-01-12 15:36] LABS: Cardiac Risk Estimate 3.9 RATIO (3.7-5.6); Cholesterol 144 mg/dL (132-200); HDL Cholesterol 37 mg/dL (40-60); LDL Cholesterol,Calculated 94 mg/dL (0-130)
[2025-01-13] VITALS: BP 121/69; PULSE 101; PULSE 99; RESP 17; TEMP 36.8; O2SAT 95
[2025-01-13] MEDS: RINGERS LACTATED 1000 ML 1,000 ML 200 ML IV ×2 (01:26→06:01)
[2025-01-13 03:41] VITALS: PULSE 90
[2025-01-13 04:00] VITALS: BP 104/59; PULSE 98; RESP 17; TEMP 36.8; O2SAT 96
[2025-01-13] MEDS: HEPARIN SOD INJ 5000 UNIT/ML VIAL SC (05:33)
[2025-01-13 05:34] LABS: Basophils # (Auto) 0.0 Thou/mm3 (0.0-0.2); Basophils % (Auto) 0 % (0-2.5); Eosinophils # (Auto) 0.1 Thou/mm3 (0.0-0.5); Eosinophils % (Auto) 1 % (0-10); Hematocrit 30.1 % (36.0-46.0); Hemoglobin 10.1 g/dL (12.0-16.0); Immature Granulocytes Auto 0.06 Thou/mm3 (0.00-0.00); Lymphocytes # (Auto) 2.2 Thou/mm3 (1.0-4.8); Lymphocytes % (Auto) 19 % (10-50); Mean Corpuscular HGB Conc 33.6 g/dl (31.0-37.0); Mean Corpuscular Hemoglobin 29.8 pg (25.0-35.0); Mean Corpuscular Volume 89 fL (80-100); Monocytes # (Auto) 0.9 Thou/mm3 (0.0-0.8); Monocytes % (Auto) 7 % (0-12); Neutrophils # (Auto) 8.8 Thou/mm3 (1.8-7.7); Neutrophils % (Auto) 72 % (37-80); Nucleated Red Blood Cell # 0.00 Thou/mm3 (0.00-0.00); Nucleated Red Blood Cell % 0 /100 WBC (0); Platelet Count 371 Thou/mm3 (140-440); RDW Standard Deviation 41.3 fL (36.4-46.3); Red Blood Count 3.39 Miln/mm3 (4.00-5.20); White Blood Count 12.1 Thou/mm3 (3.6-11.0)
[2025-01-13 06:10] LABS: Alanine Aminotransferase 62 U/L (10-49); Albumin, Serum 3.4 gm/dL (3.5-5.0); Albumin/Globulin Ratio 1.5 (1.2-2.2); Alkaline Phosphatase 99 U/L (46-116); Anion Gap 8 (7-16); Aspartate Amino Transferase 13 U/L (0-34); BUN/Creatinine Ratio 8 Ratio (12-20); Bilirubin,Total 0.9 mg/dL (0.3-1.2); Blood Urea Nitrogen 5 mg/dL (9-23); Calcium 8.4 mg/dL (8.3-10.6); Calcium (Corrected) 8.9 mg/dL (8.5-10.1); Carbon Dioxide 28.0 mMol/L (20.0-31.0); Chloride 105 mMol/L (98-107); Creatinine (Component) 0.6 mg/dL (0.6-1.3); Estimated Creatinine Clearance 154.2 mL/min (>60); Globulin 2.2 gm/dL (2.3-3.5); Glucose 89 mg/dL (74-106); Magnesium 1.6 mg/dL (1.6-2.6); Osmolality,Calculated 277 (275-295); Phosphorous 2.4 mg/dL (2.4-5.1); Potassium 3.3 mMol/L (3.4-5.1); Sodium 141 mMol/L (136-145); Total Protein 5.6 gm/dL (5.7-8.2); eGFR > 60 See Note
[2025-01-13 08:00] VITALS: BP 97/63; PULSE 102; PULSE 94; RESP 18; TEMP 36.4; O2SAT 97
[2025-01-13] MEDS: PANTOPRAZOLE 40 MG TABLET PO (08:05)
--- NOTE | 2025-01-13 09:37 | ESDS_ITS ---
<Statement entered by Elbert Vail MD - 01/19/25 12:10> I reviewed above note and agree with findings and plans. I have also personally examined the patient with medicine team and went over assessment and plan with medical team including analysis intern and resident physician. <Statement entered by Daniel Graham MD - 01/13/25 19:06> I saw and examined patient personally and supervised PGY 1 resident, Dr. Reynoso with formulating a management plan. I agree with the documentation with the exceptions as listed below. Patient is a 34-year-old female with past medical history significant for gastric sleeve surgery 5 years ago, hypothyroidism and obesity on tirzepatide who presented with severe abdominal pain and nausea. Patient was admitted for pancreatitis. Patient was treated with IV hydration and hydromorphone IV after which her condition improved. Today patient was able to tolerate a solid diet and was discharged on a 3-day course of hydrocodone 5 mg p.o. Q8 hourly as needed. Also recommend to completely discontinue tirzepatide and follow-up with primary care physician in 1 week. Problem list: 1. Acute pancreatitis secondary to tirzepatide with elevated lipase of 2451 - resolving 2. Cholelithiasis 3. Hypothyroidism 4. Obesity class II Plan of care discussed with Attending Dr. Genna Graham MD PGY 2 Disclaimer: This note was dictated by speech recognition. Minor errors in six color press operator may be present due to voice recognition software. Planned Discharge Date 01/13/25 DS: Providers Provider Date of admission: 01/11/25 21:09 Primary care physician: Physician No Primary/Family Admitting Provider: Lisa Grider MD Attending Provider on Admission: Lisa Grider MD Attending Provider on DC: Elbert Vail MD Discharging Provider: Elbert Vail MD DS: Diagnosis Problem List Completed Was Problem List Reviewed/Reconciled?: Yes Hospital Course Hospital Course Hospital course: 34 year old female patient with PMX of hypothyroidism, Gastric sleeve surgery presented with severe upper abdominal pain radiating to the back. Admitted for acute pancreatitis. In the ED patient was tachycardic and afebrile P:130/85 mm Hg, HR:100. Lab workup significant for leukocytosis with left shift WBC: 15.2 ,Neutro:92 elevated T. bili 1.3 and transaminitis AST:97, ALT:184,ALP:180 with elevated lipase 2451. Ct scan revealed pancreatitis. She has been given 2 litres of Ringer lactate. MRCP shows Cholelithiasis and no stones in the common Bile Duct. Upon admission her t. bili and transaminitis resolved. She was given IV fluids, tolerated her liquid diet and was advanced to full diet. Upon toleration of diet and resolution of symptoms patient was safe to discharge home. Follow up with PCP for Elective Cholecystecomy as an outpatient Discharge Instructions: - You have been started on a pain medication Hydorcodone. Take 1 tablet up to three times a day as needed. - Follow a bland diet for next week. - We have stopped your Zepbound. Do not take anymore. This most liekly caused your pancreatitis - Continue the rest of your home medication as before - Follow up with your primary care physician within 1 week of discharge. If you do not have a primary care physician, please follow up with the [facility] Residents clinic ([phone]) ? If you experience any new, worsening or persistent symptoms either call your primary doctor, or dial 911 or present to the emergency department. #Acute Pancreatitis most likely 2/2 zepbound #Cholelithiasis #Hyperbilirubinemia - resolved #Transaminitis - resolving #Dilutional anemia #Leukocytosis - resolved #Hypothyrodism #Hx of ruptured ovarian cyst Patient's plan and care discussed with my attending, Dr. Vail, and supervising resident MD Alan Lee MD Internal Medicine PGY-1 Time Spent with Patient Time attestation: Total time spent providing and/or coordinating discharge services: Time spent: Greater than 30 minutes Exam Vital Signs Temp Pulse Resp BP Pulse Ox O2 Del Method 97.5 F 102 H 18 97/63 97 Room Air 01/13/25 08:00 01/13/25 08:00 01/13/25 08:00 01/13/25 08:00 01/13/25 08:00 01/13/25 08:00 Narrative Exam GENERAL: NAD, AAOx3 HEENT: Moist mucosa. Eyes open, symmetrical, & clear CARDIO: RRR, no obvious murmurs PULM: No noted coughing/dyspnea CTA B/L, no R/W/R GI: Abdomen soft, nondistended, NTTP BSx4 SKIN/MSK/EXT: No wounds/rashes/edema/amputations, pain on palpation on lower Back. Pedal pulses present B/L NEURO: AAOx3, no focal neuro deficits, able to move all 4 extremities Discharge Plan Plan Patient Disposition: HOME (Self Care) Patient condition on transfer: Stable Care Plan Goals: - You have been started on a pain medication Hydorcodone. Take 1 tablet up to three times a day as needed. - Follow a bland diet for next week. - We have stopped your Zepbound. Do not take anymore. This most liekly caused your pancreatitis - Continue the rest of your home medication as before - Follow up with your primary care physician within 1 week of discharge. If you do not have a primary care physician, please follow up with the [facility] Residents clinic ([phone]) ? If you experience any new, worsening or persistent symptoms either call your primary doctor, or dial 911 or present to the emergency department. Prescriptions/Referrals Prescriptions/Med Rec: New hydrocodone-acetaminophen 5-300 mg tablet 1 tab PO TID MDD 3 tabs PRN (Reason: pain) 3 Days Qty: 9 0RF naloxone [Narcan] 4 mg/actuation spray,non-aerosol 4 mg intranasal Q2M PRN (Reason: opioid overdose) Qty: 2 0RF Rx Instructions: spray 1 dose into ONE nostril; alternate nostrils w each dose until help arrives Continued liothyronine 25 mcg tablet 25 mcg PO DAILY Patient Comments: TAKE 1 TABLET BY MOUTH DAILY DIRECTED. only taken monday- levothyroxine 75 mcg tablet 75 mcg PO DAILY Patient Comments: only taken monday- Discontinued Zepbound 10 mg/0.5 mL pen injector 10 mg subcut QWEEK Patient Comments: taken on tuesdays Referrals: [facility] [Outside] No Primary/Family,Physician [Primary Care Provider] Patient/Caregiver Discharge Instructions Discharge Activity: activity as tolerated Education Materials: Understanding Pancreatitis, Pancreatitis Acute Dc Print Language: Angolan Stand Alone Forms: Melita Award Info., Patient Portal Info Letter Discharge Order Discharge Orders: Discharge (Routine); Ordered 01/13/25 Ordered By: Daniel Graham Quality Discharge Quality Measures VTE prophylaxis
[2025-01-13 11:45] VITALS: PULSE 93
== END 2025-01-13 12:15 | disposition home or self-care (01) | DRG 439 ==
LOC: SERX 08:32 → SERHOLD 22:31 → S3NX 22:46
PROVIDERS: Nurse Practitioner Family; Student in an Organized Health Care Education/Training Program; Admitting Provider Student in an Organized Health Care Education/Training Program; Emergency Provider Emergency Medicine; Visit Provider Student in an Organized Health Care Education/Training Program
DX: K85.90 Acute pancreatitis without necrosis or infection, unspecified (principal); N39.0 Urinary tract infection, site not specified; E03.9 Hypothyroidism, unspecified; K80.20 Calculus of gallbladder without cholecystitis without obstruction; N83.01 Follicular cyst of right ovary; E66.812 Obesity, class 2; R74.01 Elevation of levels of liver transaminase levels; N83.02 Follicular cyst of left ovary; D64.89 Other specified anemias; Z68.35 Body mass index [BMI] 35.0-35.9, adult; Z98.84 Bariatric surgery status; T50.995A Adverse effect of other drugs, medicaments and biological substances, initial encounter
CPT/HCPCS: 36415; 74181; 76705; 76830; 80053; 80061; 81001; 81025; 83690; 83735; 84100; 84478; 85025; 85610; 86850; 86900; 86901; 93225; 96361; 96372; 96374; 96376; 99284; J1171; J1644; J2270; J7120; Q0162; A9270

== ENCOUNTER 2025-01-30 09:02 | Outpatient (AMB) | payer BC, SELFPAY ==
--- NOTE | 2025-01-30 09:17 | GSCOFFNT_ITS ---
Vital Signs - [facility] 01/30/25 09:18 Height 1.64 m Height Method Measured Weight 100.811 kg Weight Measurement Method Standing Scale BMI 37.5 BP 107/73 Blood Pressure Source Automatic Cuff Blood Pressure Location Right Upper Arm Position Sitting Respiration 18 Pulse 73 Pulse Source Monitor Temp 97.4 F Temp Source Temporal Artery Scan Pulse Oximetry (%) 98 Oxygen Delivery Method Room Air Med/Allergies Allergies & Medications Allergies No Known Allergies Allergy (Verified 01/30/25 09:22) Medication Reconciliation levothyroxine 75 mcg tablet 75 mcg PO DAILY 01/11/25 [History Confirmed 01/30/25] liothyronine 25 mcg tablet 25 mcg PO DAILY 01/11/25 [History Confirmed 01/30/25] MA Intake Visit Data Collection New Patient or Established: Established Patient (seen at [facility] within 3 years) Reason for Visit:: ABDOMINAL PAIN Pain Present Currently: No Pain scale:: 2 Pain Scale Used: Gross-Olivarez/Numerical Manager Training Required: No PCP or OBGYN visit in last 3 months: Yes Hx Now: No Date of Last Menstrual Period: 01/06/25 Do You Feel Safe at Home: Yes Authorities Contacted: N/A Smoking Status Smoking Status: Never smoker Immunization / Flu Flu Vaccine in the Last 12 Months: No Flu Vaccine Exclusion Criteria: No Exclusion Criteria Past Medical History Past Medical History CARDIAC: Negative Cardiac Disorders or Congestive Heart Failure RESPIRATORY: Negative Chronic Obstructive Pulmonary Disease (COPD) GASTROINTESTINAL: Positive Obesity GENITOURINARY: Negative Renal Disease ENDOCRINE: Positive Hyperthyroidism and Hypothyroidism; Negative Endocrine Disorders, Diabetes Mellitus Type 1 or Diabetes Mellitus Type 2 OTHER HISTORY: Negative Autoimmune Disease Family History FAMILY HISTORY: Positive Family Psychiatric Problems, Family Cardiac Disorders, Family Gastrointestinal Problems and Family Cancer; Negative Family Respiratory Disorders, Family Surgery or Family Anesthesia Reaction Surgical History SURGICAL: Positive Abdominal Surgery; Negative Cardiac Surgery Social History SMOKING STATUS: Smoking status: Never smoker SECOND HAND EXPOSURE: second hand exposure: No SUBSTANCE USE: Substance use type: does not use ALCOHOL: Alcohol Intake: Current ALCOHOL FREQUENCY: Alcohol Intake Frequency: holidays/special occasions only HOUSING: Housing: House LIVES WITH: Lives With: Family Travel Risk Travel Hx Recent Travel: No HPI HPI Narrative 34F referred for follow up of pancreatitis. Pt states she began having severe upper/RUQ abdominal pain a few weeks ago, she first presented to ER at for these symptoms and was diagnosed with an ovarian cyst. Because her symptoms persisted she went to [facility] ER and was found to have lipase of 2451, with MRCP and US showing prominent pancreatitis as well as gallstones. She recovered well and was referred for outpatient cholecystectomy (there appears not to have been a surgical consult during her hospitalization). Today pt reports she feels better overall but continues to have epigastric and RUQ discomfort especially after eating. When the pain was more severe she also had nausea. Pt does note her dose of zepbound had been doubled before her symptoms began, however she has not taken it for weeks and continues to have symptoms PMH: Hypothyroidism PSHx: [place], pt has lost >100lbs Meds: Levothyroxine, liothyronine Allergies: NKDA Social hx: Nonsmoker ROS Review of Systems Systems Reviewed: All systems reviewed, normal except as documented Objective/Exam General General Appearance: alert, cooperative and well groomed Resp Respiratory exam: Absent normal lung sounds bilaterally or respiratory distress Abdominal Abdominal exam: Present soft and incision (well-healed laparoscopic incisions); Absent distention or tenderness Assessment & Plan Diagnosis / Problem List (1) Pancreatitis: Status: Acute Assessment & Plan: 34F with history of gastric sleeve, thyroiditis recently admitted for pancreatitis with findings of gallstones. Pt did note her symptoms correlated with a higher dose of zepbound however zepbound is associated with a much lower risk of pancreatitis than gallstones, and she is continuing to have symptoms despite discontinuing zepbound. For these reasons I explained that cholecystectomy is reasonable and described the benefits/risks including need for conversion to open, bleeding, infection, injury to nearby structures requiring further procedures and/or a major reconstructive surgery which would require transfer to another hospital, as well as postoperative hernia and diarrhea. All questions were answered and pt is agreeable to proceeding Office Procedures [facility] Level of Care Nursing/Assessment Patient Status: Established Patient Nursing Assessment/Reassesment: Medication Reconciliation, Update PMH in EMR and Vital Signs Coordination of Care: Complex Care and Chronic Disease 1-5, Education Complex Pt/Fam, Consent,records obtained, informed consent, Results/Orders obtained and Staff clarify orders Established Patient Charge Established Patient Point Assignment: 95 Established Patient Point Charge: EP Level 3 (80-115) Patient Portal Questionaires Social History Living Situation History Housing: House Housing Other:: Patient lives with her and children. Tobacco History Smoking Status: Never smoker Second Hand Smoke Exposure: No Alcohol History Alcohol Intake: Current Alcohol Intake Frequency: holidays/special occasions only Domestic Abuse History Do You Feel Safe at Home: Yes Review of Systems Report any current symptoms Only answer those that you have currently: Past Medical History Past Medical History Have you ever been diagnosed with any of the following: Cardiology Problems Congestive Heart Failure: No Respiratory Problems Chronic Obstructive Pulmonary Disease (COPD): No Stomache/Intestinal Problems Obesity: Yes Genital/Urinary Problems Renal Disease: No Endocrine Problems Diabetes Mellitus Type 1: No Diabetes Mellitus Type 2: No Hyperthyroidism: Yes Hypothyroidism: Yes Other Problems Autoimmune Disease: No
[2025-01-30 09:18] VITALS: BP 107/73; PULSE 73; RESP 18; TEMP 36.3; O2SAT 98; BMI 37.5
== END 2025-01-30 09:37 | disposition home or self-care (01) ==
PROVIDERS: Supervising Provider Surgery; Visit Provider Surgery
DX: K85.90 Acute pancreatitis without necrosis or infection, unspecified (principal); K80.20 Calculus of gallbladder without cholecystitis without obstruction; E66.9 Obesity, unspecified; Z68.37 Body mass index [BMI] 37.0-37.9, adult
CPT/HCPCS: 99213; G0463

== ENCOUNTER 2025-01-31 13:43 | Outpatient (AMB) | payer BC, SELFPAY ==
--- NOTE | 2025-01-31 14:53 | ACNOTE_ITS ---
Vital Signs 01/31/25 14:54 Height 1.64 m Height Method Stated Weight 100.017 kg Weight Measurement Method Standing Scale BMI 37.1 BP 113/75 Blood Pressure Source Automatic Cuff Blood Pressure Location Left Upper Arm Position Sitting Respiration 16 Pulse 75 Pulse Source Monitor Temp 97.2 F Temp Source Temporal Artery Scan Pulse Oximetry (%) 99 Oxygen Delivery Method Room Air Allergies/Meds Allergies & Medications Allergies No Known Allergies Allergy (Verified 01/31/25 14:55) Medication Reconciliation levothyroxine 75 mcg tablet 75 mcg PO DAILY 01/11/25 [History Confirmed 01/31/25] liothyronine 25 mcg tablet 25 mcg PO DAILY 01/11/25 [History Confirmed 01/31/25] MA Intake Visit Data Collection New Patient or Established: Established Patient (seen at [facility] within 3 years) Seen by Clinical Staff ONLY (RN/SABRA): No Pain Present Currently: Yes Pain Location: Abdomen Pain scale:: 3 Pain Scale Used: Gross-Olivarez/Numerical Retort Furnace Helper Required: No PCP or OBGYN visit in last 3 months: Yes Hx Now: No Do You Feel Safe at Home: Yes Authorities Contacted: N/A Smoking Status Smoking Status: Never smoker Immunization / Flu Flu Vaccine in the Last 12 Months: No Flu Vaccine Exclusion Criteria: Already Received Past Medical History Past Medical History CARDIAC: Negative Cardiac Disorders or Congestive Heart Failure RESPIRATORY: Negative Chronic Obstructive Pulmonary Disease (COPD) GASTROINTESTINAL: Positive Obesity GENITOURINARY: Negative Renal Disease ENDOCRINE: Positive Hyperthyroidism and Hypothyroidism; Negative Endocrine Disorders, Diabetes Mellitus Type 1 or Diabetes Mellitus Type 2 OTHER HISTORY: Negative Autoimmune Disease Family History FAMILY HISTORY: Positive Family Psychiatric Problems, Family Cardiac Disorders, Family Gastrointestinal Problems and Family Cancer; Negative Family Respiratory Disorders, Family Surgery or Family Anesthesia React ion Surgical History SURGICAL: Positive Abdominal Surgery; Negative Cardiac Surgery Social History SMOKING STATUS: Smoking status: Never smoker SECOND HAND EXPOSURE: second hand exposure: No ALCOHOL: Alcohol Intake: Current ALCOHOL FREQUENCY: Alcohol Intake Frequency: holidays/special occasions only HOUSING: Housing: House LIVES WITH: Lives With: Family Patient Portal Questionaires PHQ-9 PHQ-2 Over the last 2 weeks, how often have you been bothered by any of the following problems? 1. Little interest or pleasure in doing things: not at all 2. Feeling down, depressed, or hopeless: not at all Total score: 0 PHQ-9 3. Trouble falling or staying asleep, or sleeping too much: Not at all 4. Feeling tired or having little energy: Not at all 5. Poor appetite or overeating: Not at all 6. Feeling bad about yourself - or that you are a failure or have let yourself or your family down: Not at all 7. Trouble concentrating on things, such as reading the newspaper or watching television: Not at all 8. Moving or speaking so slowly that other people could have noticed? - Or the opposite - being so fidgety or restless that you have been moving around a lot more than usual: not at all 9. Thoughts that you would be better off or of hurting yourself in some way: Not at all Total score: 0 If you checked off any problems, how difficult have these problems made it for you to do your work, take care of things at home, or get along with other people?: not difficult at all Source: Developed by Drs. Riley Irwin, Patricia Blood, Kanu Mayfield and colleagues, with an educational cale from [employer]. Depression screen completed yes Social History Living Situation History Housing: House Housing Other:: Patient lives with her and children. Tobacco History Smoking Status: Never smoker Second Hand Smoke Exposure: No Alcohol History Alcohol Intake: Current Alcohol Intake Frequency: holidays/special occasions only Domestic Abuse History Do You Feel Safe at Home: Yes Review of Systems Report any current symptoms Only answer those that you have currently: Past Medical History Past Medical History Have you ever been diagnosed with any of the following: Cardiology Problems Congestive Heart Failure: No Respiratory Problems Chronic Obstructive Pulmonary Disease (COPD): No Stomache/Intestinal Problems Obesity: Yes Genital/Urinary Problems Renal Disease: No Endocrine Problems Diabetes Mellitus Type 1: No Diabetes Mellitus Type 2: No Hyperthyroidism: Yes Hypothyroidism: Yes Other Problems Autoimmune Disease: No History of Present Illness HPI Narrative Patient is a 34 year old female with PMH of gastric sleeve surgery and hypothyroidism who was recently hospitalized at [facility] from 01/11/25-01/13/25 for acute pancreatitis who presents today for a 9-ubjw-udrtdp-up visit. Patient says that she has not had any pain other than one episode last Monday which was similar to her pancreatitis pain but much lower in severity and associated with eating eggs. She states that she saw General Surgery (Dr. Rene) yesterday who has scheduled her for an elective cholecystectomy on 02/16/25. Patient will be sent out today with lab orders for CBC, renal panel, liver panel, and amylase and instructed to have them completed around 1 week before her next appointment in 2 weeks. Review of Systems Review of Systems Systems Reviewed: All systems reviewed, normal except as documented Objective/Exam Narrative Physical exam: General: A/O x3, no acute distress. Skin: Warm, dry, intact, no obvious rash. Head: Normocephalic, atraumatic. Eyes: Anicteric, vision grossly intact. Ears: No ear pain, no ear discharge, Hearing grossly intact. Nose: No nasal discharge. Mouth/Throat: Oral mucosa moist. No obvious lesions in oropharynx. Cardiovascular: Regular rate and rhythm, no murmur, no JVD or carotid bruits. +S1/S2. Respiratory: Bilateral lungs are clear to auscultation, respirations unlabored, no crackles, no wheezing. No accessory muscle use. Gastrointestinal: Soft, nontender, non-distended, no palpable masses. No guarding or rebound tenderness. Peristalsis present. Extremities: Symmetrical, no significant deformities. No edema, no cyanosis, no clubbing. 2+ radial pulse bilaterally, 2+ posterior tibial pulse bilaterally. Neuro: No focal deficits observed. Conversant, moving all extremities. No overt cerebellar signs/incoordination. Psychiatric: Cooperative, appropriate affect. Assessment & Plan Diagnosis / Problem List (1) Pancreatitis: Status: Acute Assessment & Plan: Patient was recently hospitalized from 01/11/25-01/13/25 for acute pancreatitis believed to have been caused by tirzepatide with an elevated lipase of 2451, now resolved Tirzepatide has been discontinued Plan: -Ordered following labs: CBC, renal panel, liver panel and amylase (no lipase on lab form), instructed patient to complete them a week before next follow-up appo intment 2 weeks from now -Patient is scheduled for elective cholecystectomy with Dr. Rene on February 26 -Follow-up appointment in 2 weeks (2) Cholelithiasis: Status: Acute Assessment & Plan: 01/11/25 abdominal US and MRCP showed multiple gallstones Patient was symptomatic due to her presentation of abdominal pain radiating to the back in the setting of acute pancreatitis Plan: -Patient is scheduled for elective cholecystectomy with Dr. Rene on February 26 -Follow-up appointment in 2 weeks Plan I have examined the patient and conferred with my attending, Dr. Albright, regarding them. Shahram Phan, DO PGY-1 Internal Medicine Office Procedures [facility] Level of Care Nursing/Assessment Patient Status: Established Patient Nursing Assessment/Reassessment: Medication Reconciliation, Update PMH in EMR and Vital Signs Coordination of Care: Complex Care/Chronic Disease 5 or more, Education Complex Pt/Fam, Consent,records obtained, informed consent, Lab and Imaging orders, Results/Orders obtained and Staff clarify orders Established Patient Charge Established Patient Point Assignment: 120 Established Patient Point Charge: EP Level 4 (120-155) TB Screening LTBI Screening: Has patient traveled, was born, or resided for at least 1 month, or frequent border crossing into a country with an elevated TB rate: No Immunosuppression, current or planned (HIV, organ transplant, treated with biologic agents, steroids, or other immunosuppression medication): No Close contact to someone with infectious TB disease during lifetime: No Homelessness or incarceration, current or past: No TB testing indicated at this time (at least 1 yes above): No
[2025-01-31 14:54] VITALS: BP 113/75; PULSE 75; RESP 16; TEMP 36.2; O2SAT 99; BMI 37.1
== END 2025-01-31 15:54 | disposition home or self-care (01) ==
LOC: HODAHC 13:43
PROVIDERS: Supervising Provider Internal Medicine
DX: K85.90 Acute pancreatitis without necrosis or infection, unspecified (principal); K80.20 Calculus of gallbladder without cholecystitis without obstruction
CPT/HCPCS: 99214; G0463

== ENCOUNTER 2025-02-19 13:21 | Outpatient (AMB) | payer BC, SELFPAY ==
[2025-02-19 13:41] VITALS: BP 110/71; PULSE 81; RESP 16; TEMP 35.8; O2SAT 99; BMI 38.5
--- NOTE | 2025-02-19 13:41 | PD.RESCLINIC ---
Vital Signs 02/19/25 13:41 Height 1.64 m Height Method Stated Weight 103.532 kg Weight Measurement Method Standing Scale BMI 38.5 BP 110/71 Blood Pressure Source Automatic Cuff Blood Pressure Location Right Upper Arm Position Sitting Respiration 16 Pulse 81 Pulse Source Monitor Temp 96.5 F L Temp Source Temporal Artery Scan Pulse Oximetry (%) 99 Oxygen Delivery Method Room Air Allergies/Meds Allergies & Medications Allergies No Known Allergies Allergy (Verified 02/19/25 13:42) Medication Reconciliation levothyroxine 75 mcg tablet 75 mcg PO DAILY 01/11/25 [History Confirmed 02/19/25] liothyronine 25 mcg tablet 25 mcg PO DAILY 01/11/25 [History Confirmed 02/19/25] MA Intake Visit Data Collection New Patient or Established: Established Patient (seen at [facility] within 3 years) Seen by Clinical Staff ONLY (RN/SABRA): No Pain Present Currently: No Pain scale:: 0 Pain Scale Used: Gross-Olivarez/Numerical Drying Tunnel Operator Required: No PCP or OBGYN visit in last 3 months: Yes Hx Now: No Do You Feel Safe at Home: Yes Authorities Contacted: N/A Smoking Status Smoking Status: Never smoker Immunization / Flu Flu Vaccine in the Last 12 Months: No Flu Vaccine Exclusion Criteria: No Exclusion Criteria Past Medical History Past Medical History CARDIAC: Negative Cardiac Disorders or Congestive Heart Failure RESPIRATORY: Negative Chronic Obstructive Pulmonary Disease (COPD) GASTROINTESTINAL: Positive Obesity GENITOURINARY: Negative Renal Disease ENDOCRINE: Positive Hyperthyroidism and Hypothyroidism; Negative Endocrine Disorders, Diabetes Mellitus Type 1 or Diabetes Mellitus Type 2 OTHER HISTORY: Negative Autoimmune Disease Family History FAMILY HISTORY: Positive Family Psychiatric Problems, Family Cardiac Disorders, Family Gastrointestinal Problems and Family Cancer; Negative Family Respiratory Disorders, Family Surgery or Family Anesthesia Reaction Surgical History SURGICAL: Positive Abdominal Surgery; Negative Cardiac Surgery Social History SMOKING STATUS: Smoking status: Never smoker SECOND HAND EXPOSURE: second hand exposure: No ALCOHOL: Alcohol Intake: Current ALCOHOL FREQUENCY: Alcohol Intake Frequency: holidays/special occasions only HOUSING: Housing: House LIVES WITH: Lives With: Family Patient Portal Questionaires PHQ-9 PHQ-2 Over the last 2 weeks, how often have you been bothered by any of the following problems? 1. Little interest or pleasure in doing things: not at all PHQ-9 8. Moving or speaking so slowly that other people could have noticed? - Or the opposite - being so fidgety or restless that you have been moving around a lot more than usual: not at all Source: Developed by Drs. Riley Irwin, Patricia Blood, Kanu Mayfield and colleagues, with an educational cale from [employer]. Social History Living Situation History Housing: House Housing Other:: Patient lives with her and children. Tobacco History Smoking Status: Never smoker Second Hand Smoke Exposure: No Alcohol History Alcohol Intake: Current Alcohol Intake Frequency: holidays/special occasions only Domestic Abuse History Do You Feel Safe at Home: Yes Review of Systems Report any current symptoms Only answer those that you have currently: Past Medical History Past Medical History Have you ever been diagnosed with any of the following: Cardiology Problems Congestive Heart Failure: No Respiratory Problems Chronic Obstructive Pulmonary Disease (COPD): No Stomache/Intestinal Problems Obesity: Yes Genital/Urinary Problems Renal Disease: No Endocrine Problems Diabetes Mellitus Type 1: No Diabetes Mellitus Type 2: No Hyperthyroidism: Yes Hypothyroidism: Yes Other Problems Autoimmune Disease: No History of Present Illness HPI Narrative Patient is a 34 year old female with PMH of gastric sleeve surgery and hypothyroidism who was recently hospitalized at [facility] from 01/11/25-01/13/25 for acute pancreatitis who presents today for a 8-phcz-[id number]-up visit. Patient says that she has not had any pain other than one episode last Monday which was similar to her pancreatitis pain but much lower in severity and associated with eating eggs. She states that she saw General Surgery (Dr. Rene) yesterday who has scheduled her for an elective cholecystectomy on 02/16/25. Patient will be sent out today with lab orders for CBC, renal panel, liver panel, and amylase and instructed to have them completed around 1 week before her next appointment in 2 weeks. 02/19/25: Patient is here for to follow-up on lab orders that were dispensed after her last visit on 01/31/25. Patient's labs were remarkable for potassium 5.1, alkaline phosphatase 143, and ALT 57 but otherwise WNL. Amylase returned WNL @ 52. These lab results were discussed with the patient and all questions were answered regarding them. In other news, patient reports feeling good and denies any abdominal pain. She expresses some concern regarding some varicose veins especially those located at her right knee. She also requested that she be placed on another weight-loss medication like tirzepatide but it was explained to her that other medications like semaglutide could also trigger her pancreatitis like the tirzepatide did. Patient voiced understanding of this and was amenable to lifestyle modifications for now. Patient is scheduled for elective cholecystectomy on 02/[address] Rene. She will be sent out with lab orders for TSH, free T3 and T4, HgbA1c, liver panel, and hepatitis panel which she has been instructed to have drawn around 2 weeks before her next appointment which will be in 3 months' time. Review of Systems Review of Systems Systems Reviewed: All systems reviewed, normal except as documented Assessment & Plan Diagnosis / Problem List (1) Pancreatitis: Status: Acute Assessment & Plan: Patient was recently hospitalized from 01/11/25-01/13/25 for acute pancreatitis believed to have been caused by tirzepatide with an elevated lipase of 2451, now resolved Tirzepatide has been discontinued Plan: -Patient is scheduled for elective cholecystectomy with Dr. Rene on February 26 (2) Cholelithiasis: Status: Acute Assessment & Plan: 01/11/25 abdominal US and MRCP showed multiple gallstones Patient was symptomatic due to her presentation of abdominal pain radiating to the back in the setting of acute pancreatitis Plan: -Patient is scheduled for elective cholecystectomy with Dr. Rene on February 26 -Ordered liver panel (3) Hypothyroidism: Status: Acute Assessment & Plan: Takes home levothyroxine 75 mcg PO qD and liothyronine 25 mcg PO qD Plan: -Ordered TSH, free T3, and free T4 (4) Encounter for routine adult health examination: Status: Acute Plan: -Ordered HgbA1c -Ordered hepatitis panel Plan I have examined the patient and conferred with my attending, Dr. Albright, regarding them. Shahram Phan, DO PGY-1 Internal Medicine Orders: Orders Thyroid Stimulating Hormone Today E03.9 - Hypothyroidism, unspecified Free T4 (Free Thyroxine) Today E03.9 - Hypothyroidism, unspecified Free T3 Today E03.9 - Hypothyroidism, unspecified Ambulatory Hemoglobin A1C Today E03.9 - Hypothyroidism, unspecified Liver Panel Today K80.20 - Calculus of gallbladder without cholecystitis without obstruction Hepatitis Acute Panel Today Z00.00 - Encounter for general adult medical examination without abnormal findings Office Procedures [facility] Level of Care Nursing/Assessment Patient Status: Established Patient Nursing Assessment/Reassessment: Medication Reconciliation, Update PMH in EMR and Vital Signs Coordination of Care: Complex Care and Chronic Disease 1-5, Complex Care/Chronic Disease 5 or more, Education Complex Pt/Fam, Consent,records obtained, informed consent, Lab and Imaging orders, Results/Orders obtained and Staff clarify orders Established Patient Charge Established Patient Point Assignment: 145 Established Patient Point Charge: EP Level 4 (120-155)
== END 2025-02-19 15:01 | disposition home or self-care (01) ==
LOC: HODAHC 13:21
PROVIDERS: Supervising Provider Internal Medicine
DX: K80.20 Calculus of gallbladder without cholecystitis without obstruction (principal); E03.9 Hypothyroidism, unspecified; Z87.19 Personal history of other diseases of the digestive system
CPT/HCPCS: 99214; G0463

== ENCOUNTER 2025-02-26 05:50 | Day surgery (SDC) | payer BC, SELFPAY ==
[2025-02-21 07:42] VITALS: BMI 38.1
[2025-02-21 08:52] LABS: Basophils # (Auto) 0.0 Thou/mm3 (0.0-0.2); Basophils % (Auto) 0 % (0-2.5); Eosinophils # (Auto) 0.1 Thou/mm3 (0.0-0.5); Eosinophils % (Auto) 1 % (0-10); Hematocrit 34.8 % (36.0-46.0); Hemoglobin 11.5 g/dL (12.0-16.0); Immature Granulocytes Auto 0.01 Thou/mm3 (0.00-0.00); Lymphocytes # (Auto) 2.2 Thou/mm3 (1.0-4.8); Lymphocytes % (Auto) 30 % (10-50); Mean Corpuscular HGB Conc 33.0 g/dl (31.0-37.0); Mean Corpuscular Hemoglobin 29.5 pg (25.0-35.0); Mean Corpuscular Volume 89 fL (80-100); Monocytes # (Auto) 0.5 Thou/mm3 (0.0-0.8); Monocytes % (Auto) 6 % (0-12); Neutrophils # (Auto) 4.6 Thou/mm3 (1.8-7.7); Neutrophils % (Auto) 62 % (37-80); Nucleated Red Blood Cell # 0.00 Thou/mm3 (0.00-0.00); Nucleated Red Blood Cell % 0 /100 WBC (0); Platelet Count 369 Thou/mm3 (140-440); RDW Standard Deviation 42.8 fL (36.4-46.3); Red Blood Count 3.90 Miln/mm3 (4.00-5.20); White Blood Count 7.5 Thou/mm3 (3.6-11.0)
[2025-02-21 08:57] LABS: INR 1.0 (0.9-1.3); Partial Thromboplastin Time 27.3 Seconds (22.0-36.0); Prothrombin Time 10.6 Seconds (9.0-12.2)
[2025-02-21 09:01] LABS: HCG,Qualitative Serum Negative
[2025-02-21 09:02] LABS: Anion Gap 9 (7-16); BUN/Creatinine Ratio 20 Ratio (12-20); Blood Urea Nitrogen 12 mg/dL (9-23); Calcium 9.6 mg/dL (8.3-10.6); Carbon Dioxide 28.3 mMol/L (20.0-31.0); Chloride 105 mMol/L (98-107); Creatinine (Component) 0.6 mg/dL (0.6-1.3); Estimated Creatinine Clearance 161.0 mL/min (>60); Glucose 96 mg/dL (74-106); Osmolality,Calculated 282 (275-295); Potassium 4.2 mMol/L (3.4-5.1); Sodium 142 mMol/L (136-145); eGFR > 60 See Note
[2025-02-26] VITALS (8 sets, daily range): BP systolic 98–140; BP diastolic 77–100; PULSE 69–87; RESP 12–20; TEMP 36.4–36.8; O2SAT 95–100; BMI 37.7
--- NOTE | 2025-02-26 07:20 | CHAP ---
Visited briefly with patient and gave encouragement and prayer.
--- NOTE | 2025-02-26 08:40 | PD.SUROPNT ---
Date of Procedure 02/26/25 Pre Op Diagnosis Symptomatic cholelithiasis Post Op Diagnosis Same Procedure Laparoscopic cholecystectomy Findings Normal appearing gallbladder Procedure Description After discussion of risks and benefits, patient was brought to the operating room, SCDs were placed and general anesthesia was induced. She received preoperative antibiotics and was prepped and draped in usual sterile fashion. After timeout a supraumbilical incision was made with a #15 blade and skin was elevated with towel clamps. Veress needle was placed through the incision but proper positioning was not able to be confirmed with a drop test. I then switched to a longer Veress needle and proper positioning was confirmed with a drop test. The abdomen was insufflated to 12 mmHg and then the Veress needle was exchanged for a 5 mm camera using a Visiport technique. There were no signs of injury from the point of entry. 3 additional ports were placed under direct vision, one 12 mm at the epigastrium, one 5 mm right subcostal and one 5 mm right anterior axillary line. Patient was placed in reverse Trendelenburg. The fundus of the gallbladder was grasped and retracted cephalad and the infundibulum was grasped and retracted laterally. The lower third of the gallbladder was removed in the gallbladder bed using electrocautery and the hepatocystic triangle was cleared of all fat and fibrous tissue. Using blunt dissection the critical view of safety was achieved and the cystic duct and cystic artery were clipped and transected in the usual fashion. The gallbladder was removed from the gallbladder bed using electrocautery. There was minimal bleeding of the gallbladder bed which was controlled with electrocautery. Specimen was removed in an Endo Catch bag via the epigastric port and epigastric fascia was closed with 0 Vicryl suture using a Anton-Faviola. Counts were confirmed correct and pneumoperitoneum was released while ports were removed under direct vision. Incisions were irrigated and infiltrated with half percent Marcaine for a total of 30 cc. Incisions were closed with 4 Monocryl and reinforced with Dermabond. Patient was extubated and brought to PACU in stable condition Pathology / specimen Other (Gallbladder) Estimated Blood Loss 20 Surgeon Tiffanie Rene MD Surgical Staff Operation Date: 02/26/25 07:30 Case Staff Anesthesiologist: Anders Herron RN First Assistant: Saba Hale
--- NOTE | 2025-02-26 08:41 | SUR.PHASEI ---
0841 Patient arrived to recovery resting comfortably in [facility], drowsy and able to respond to verbal prompting, oral airway removed upon arrival, on oxygen via nasal cannula 4L, breathing unlabored, vital signs stable, dressing intact to abdomen; dermabond, no bleeding noted, report received from Wilma SALAS and Dr. Herron
--- NOTE | 2025-02-26 08:44 | ESDS_ITS ---
Planned Discharge Date 02/26/25 DS: Providers Provider Primary care physician: Toby Graham DO Attending Provider on Admission: Tiffanie Rene MD Attending Provider on DC: Tiffanie Rene MD Discharging Provider: Tiffanie Rene MD Diagnosis Discharge Diagnosis (1) Pancreatitis: Status: Acute (2) Cholelithiasis: Status: Acute Problem List Completed Was Problem List Reviewed/Reconciled?: Yes Exam Vital Signs Temp Pulse Resp BP Pulse Ox 97.8 F 87 12 98/77 99 02/26/25 06:17 02/26/25 06:17 02/26/25 06:17 02/26/25 06:17 02/26/25 06:17 Discharge Plan Plan Patient Disposition: HOME (Self Care) Prescriptions/Referrals Prescriptions/Med Rec: New oxycodone-acetaminophen [Endocet] 5-325 mg tablet 1 tab PO Q4HR MDD 6 tabs PRN (Reason: pain) Qty: 10 0RF Rx Instructions: Take 1 tablet as needed every 4-6 hours for moderate to severe pain No Action liothyronine 25 mcg tablet 25 mcg PO DAILY Patient Comments: TAKE 1 TABLET BY MOUTH DAILY DIRECTED. only taken monday- levothyroxine 75 mcg tablet 75 mcg PO DAILY Patient Comments: only taken monday- Referrals: Toby Graham DO [Primary Care Provider, Family Practice] Tiffanie Rene MD [Physician, General Surgery] Patient/Caregiver Discharge Instructions Other Discharge Activity Instructions:: Avoid lifting objects greater than 10 pounds for 6 weeks You may resume showering in 2 days, on 02/28 It is okay to get incisions wet at that time, pat dry after Avoid bathing or swimming for 2 weeks During the surgery we fill your abdomen with air in order to see the structures. Some of this air tends to linger and cause pain referred to the shoulder as well as pain with deep breaths. This will get better with time. Being out of bed and walking will help the air to absorb faster If you develop worsening pain, nausea/vomiting, fever or signs of jaundice please seek care in ER For any nonemergent concern please feel free to call the office at [phone] during business hours (M-F 8-4pm, except 12-1pm for lunch) Education Materials: Preventing Surgical Site Infections, After Gallbladder Surgery Print Language: Croatian Stand Alone Forms: Melita Award Info., Patient Portal Info Letter PROCEDURES: Procedure Date 02/26/25 Procedures Laparoscopic cholecystectomy
[2025-02-26] MEDS: ONDANSETRON INJ 2 MG/ML INJ 2 ML 4 MG IVP (08:57)
[2025-02-26] MEDS: fentaNYL CIT INJ 50 mCg/ML AMP 2ML 25 MCG IVP ×2 (09:00→09:17)
--- NOTE | 2025-02-26 09:48 | SUR.PHASEII ---
0948 Patient meets discharge criteria from recovery, awake and alert, breathing unlabored, vital signs stable, denies pain and nausea, dressing intact; no bleeding noted, drinking fluids; denies nausea, assisted with dressing into her clothing by her , discharge instructions given to patient and patients , signed discharge instructions. Patient given all her belongings prior to discharge, transported via wheelchair and left in a private vehicle.
== END 2025-02-26 09:48 | disposition home or self-care (01) ==
PROVIDERS: PCP Family Medicine; Referring Provider Surgery; Visit Provider Surgery
PROC: 0FT44ZZ Resection of Gallbladder, Percutaneous Endoscopic Approach (ICD-10-PCS; CPT 47562; principal; 2025-02-26 07:30)
DX: K80.10 Calculus of gallbladder with chronic cholecystitis without obstruction (principal); K85.90 Acute pancreatitis without necrosis or infection, unspecified
CPT/HCPCS: 47562; 36415; 80048; 84703; 85025; 85610; 85730; A4217; A4649; J0131; J0694; J1100; J1885; J2250; J2405; J2704; J3010; J3490; A9270

== ENCOUNTER 2025-03-10 09:46 | Outpatient (AMB) | payer BC, SELFPAY ==
[2025-03-10 09:56] VITALS: BP 105/71; PULSE 74; RESP 18; TEMP 36.1; O2SAT 99; BMI 37.9
--- NOTE | 2025-03-10 09:56 | GSCOFFNT_ITS ---
Vital Signs - [facility] 03/10/25 09:56 Height 1.65 m Height Method Measured Weight 103.192 kg Weight Measurement Method Standing Scale BMI 37.9 BP 105/71 Blood Pressure Source Automatic Cuff Blood Pressure Location Left Upper Arm Position Sitting Respiration 18 Pulse 74 Pulse Source Monitor Temp 96.9 F Temp Source Temporal Artery Scan Pulse Oximetry (%) 99 Oxygen Delivery Method Room Air Med/Allergies Allergies & Medications Allergies No Known Allergies Allergy (Verified 03/10/25 09:59) Medication Reconciliation levothyroxine 75 mcg tablet 75 mcg PO DAILY 01/11/25 [History Confirmed 03/10/25] liothyronine 25 mcg tablet 25 mcg PO DAILY 01/11/25 [History Confirmed 03/10/25] oxycodone-acetaminophen 5 mg-325 mg tablet (Endocet) 1 tab PO Q4HR PRN pain #10 tabs 02/26/25 [Rx Confirmed 03/10/25] MA Intake Visit Data Collection New Patient or Established: Established Patient (seen at [facility] within 3 years) Seen by Clinical Staff ONLY (RN/MA): No Reason for Visit:: 2 WEEK POST OP LAP HANANE Pain Present Currently: No Pain Scale Used: Gross-Olivarez/Numerical Wreath Machine Operator Required: No PCP or OBGYN visit in last 3 months: Yes Hx Now: No Do You Feel Safe at Home: Yes Authorities Contacted: N/A Smoking Status Smoking Status: Never smoker Immunization / Flu Flu Vaccine in the Last 12 Months: Yes Flu Vaccine Exclusion Criteria: Already Received Past Medical History Past Medical History NEUROLOGIC: Negative Neurological Disorders or Seizures CARDIAC: Negative Cardiac Disorders or Congestive Heart Failure RESPIRATORY: Negative Chronic Obstructive Pulmonary Disease (COPD) GASTROINTESTINAL: Positive Gastrointestinal Disorders, Pancreatitis, Gall Bladder Disease and Obesity GENITOURINARY: Negative Genitourinary Disorders or Renal Disease REPRODUCTIVE: Positive Previous Pregnancies; Negative Pelvic Inflammatory Disease ENDOCRINE: Positive Hyperthyroidism and Hypothyroidism; Negative Endocrine Disorders, Diabetes Mellitus Type 1 or Diabetes Mellitus Type 2 HEMATOLOGIC: Positive Anemia; Negative Blood Disorders OTHER HISTORY: Positive Anesthesia Reactions (DIFFICULT TO WAKE UP) and Chicken Pox; Negative Autoimmune Disease, Blood Transfusions, Blood Transfusion Reaction (n/a), Human Immunodeficiency Virus (HIV) or Cancer Family History FAMILY HISTORY: Positive Family Psychiatric Problems, Family Cardiac Disorders, Family Gastrointestinal Problems and Family Cancer; Negative Family Respiratory Disorders, Family Surgery or Family Anesthesia Re action Surgical History SURGICAL: Positive Abdominal Surgery and Gastric Bypass Surgery (Gastric sleeve); Negative Cardiac Surgery Social History SMOKING STATUS: Smoking status: Never smoker SECOND HAND EXPOSURE: second hand exposure: No ALCOHOL: Alcohol Intake: Current ALCOHOL FREQUENCY: Alcohol Intake Frequency: holidays/special occasions only HOUSING: Housing: House LIVES WITH: Lives With: Family HPI HPI Narrative HISTORY OF PRESENT ILLNESS I, Tiffanie Catherinetyesha, have obtained verbal consent from the patient, to be recorded during this encounter which may include, but not limited to, medical history, examination, treatment plans, and relevant health information.? Patient was informed that recording will be read and reviewed by myself before inclusion in the medical chart. 34F s/p lap hanane 02/26 here for planned follow up. She reports overall good health but mentions a slight tugging sensation during deep inhalation. She has not experienced any episodes of diarrhea or postprandial discomfort. Initially, her diet was bland for the first 4 to 5 days post-surgery, but she has since resumed her regular eating habits. However, her bowel movements remain irregular. She expresses concern about potential weight gain, as she had been managing her weight well prior to her diagnosis of pancreatitis. She is uncertain whether her pancreatitis was a result of her gallbladder condition or her medication, Zepbound ROS Review of Systems Systems Reviewed: All systems reviewed, normal except as documented Objective/Exam General General Appearance: alert, cooperative and well groomed Resp Respiratory exam: Absent respiratory distress Abdominal Abdominal exam: Present soft and incision (c/d/i, no erythema, no fluctuance or tenderness); Absent distention or tenderness Results Pathology of gallbladder reviewed Assessment & Plan Diagnosis / Problem List (1) Cholelithiasis: Status: Acute Assessment & Plan: 34F s/p lap hanane 02/26, recovering well overall. I advised her to increase her water intake as she reports minimal intake and to initiate fiber for more regular bowel movements. Pt understands she should avoid strenuous activity including lifting objects >10lbs for 6 weeks and will wait til then to resume her zepbound. Return precautions provided Office Procedures GNS Level of Care Nursing/Assessment Patient Status: Established Patient Nursing Assessment/Reassesment: Medication Reconciliation, Update PMH in EMR and Vital Signs Coordination of Care: Complex Care and Chronic Disease 1-5, Education Complex Pt/Fam, Consent,records obtained, informed consent, Results/Orders obtained and Staff clarify orders Established Patient Charge Established Patient Point Assignment: 95 Established Patient Point Charge: Level 3 (80-115) Patient Portal Questionaires Social History Living Situation History Housing: House Housing Other:: Patient lives with her and children. Tobacco History Smoking Status: Never smoker Second Hand Smoke Exposure: No Alcohol History Alcohol Intake: Current Alcohol Intake Frequency: holidays/special occasions only Domestic Abuse History Do You Feel Safe at Home: Yes Review of Systems Report any current symptoms Only answer those that you have currently: Past Medical History Past Medical History Have you ever been diagnosed with any of the following: Neurological Problems Seizures: No Cardiology Problems Congestive Heart Failure: No Respiratory Problems Chronic Obstructive Pulmonary Disease (COPD): No Stomache/Intestinal Problems Pancreatitis: Yes Gall Bladder Disease: Yes Obesity: Yes Genital/Urinary Problems Renal Disease: No Reproductive Problems Pelvic Inflammatory Disease: No Previous Pregnancies: Yes Endocrine Problems Diabetes Mellitus Type 1: No Diabetes Mellitus Type 2: No Hyperthyroidism: Yes Hypothyroidism: Yes Blood Problems Anemia: Yes Other Problems Autoimmune Disease: No Blood Transfusions: No Blood Transfusion Reaction: No (n/a) Anesthesia Reactions: Yes (DIFFICULT TO WAKE UP) Human Immunodeficiency Virus (HIV): No Chicken Pox: Yes Cancer: No
== END 2025-03-10 10:30 | disposition home or self-care (01) ==
LOC: HODSRG 09:46
PROVIDERS: Supervising Provider Surgery; Visit Provider Surgery
DX: Z48.815 Encounter for surgical aftercare following surgery on the digestive system (principal); E66.9 Obesity, unspecified; Z68.37 Body mass index [BMI] 37.0-37.9, adult
CPT/HCPCS: 99213; G0463